=== PATIENT | female | born 1960 | race Caucasian/White ===

== ENCOUNTER 2018-10-21 16:51 | Emergency (ER) | payer SELFPAY ==
[~2018-10-21] VITALS: Ht 157.5 cm; Wt 112.9 kg
[2018-10-21 16:56] VITALS: BP 145/67; PULSE 92; RESP 18; Ht 157.5 cm; Wt 112.9 kg
== END 2018-10-21 18:37 | disposition left against medical advice (07) ==
LOC: E/R 16:51
DX: Z53.21 Procedure and treatment not carried out due to patient leaving prior to being seen by health care provider (principal)